=== PATIENT | male | born 1990 | race Asian ===

== ENCOUNTER 2024-04-12 09:13 | Emergency (ER) | payer MEDICAID, SELFPAY ==
[2024-04-12 09:30] VITALS: BP 135/80; PULSE 65; RESP 16; TEMP 37.1; O2SAT 98; BMI 27.4
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
[2024-04-12] MEDS: KETOROLAC INJ 30 MG/ML VIAL IM (10:33)
[2024-04-12] MEDS: DIPHTH,PERTUSS(ACELL),TET VAC 0.5 ML SYR IMi (10:34)
[2024-04-12] MEDS: BACITRACIN OINT 15 GM TUBE TOP (10:40)
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
== END 2024-04-12 11:12 | disposition left against medical advice (07) ==
PROVIDERS: Emergency Provider Emergency Medicine
DX: T22.211A Burn of second degree of right forearm, initial encounter (principal); T23.201A Burn of second degree of right hand, unspecified site, initial encounter; T31.0 Burns involving less than 10% of body surface; X08.8XXA Exposure to other specified smoke, fire and flames, initial encounter; Z23 Encounter for immunization
CPT/HCPCS: 90471; 90715; 96372; 99283; J1885